=== PATIENT | female | born 1990 | race Caucasian/White ===

== ENCOUNTER → 2018-01-11 | Outpatient (CLI) | payer OTHER ==
--- NOTE | 2018-01-11 13:06 | US ---
EXAMINATION TYPE: US thyroid st tissue head/neck DATE OF EXAM: 01/11/2018 COMPARISON: NONE CLINICAL HISTORY: E04.9 ENLARGED THYROID. GLAND SIZE: Right Lobe: 4.9 x 2.1 x 2.1 cm Overall Parenchyma: heterogenous Left Lobe: 4.7 x 1.9 x 2.0 cm Overall Parenchyma: heterogeneous Isthmus Thickness: 0.5 cm NODULES RIGHT: # of nodules measured on right: 0 LEFT: # of nodules measured on left: 0 ISTHMUS: # of nodules measured in the isthmus: 0 Bilateral neck scanned, no evidence of lymphadenopathy. Left lobe appears slightly larger than right Diffusely heterogenous gland bilaterally. No definitive nodule identified. IMPRESSION: Heterogenous thyroid. No discrete suspicious nodules are evident.
== END | disposition home or self-care (01) ==
LOC: RADUSWWP 12:11
PROVIDERS: ATTEND Family Medicine
DX: E07.9 Disorder of thyroid, unspecified (principal)
CPT/HCPCS: 76536

== ENCOUNTER 2019-10-26 16:50 | Emergency (ER) | payer BC ==
[2019-10-26 16:59] VITALS: BP 132/86; PULSE 58; RESP 18; TEMP 98.1
--- NOTE | 2019-10-26 17:08 | ED ---
Wound/Laceration HPI - General Chief Complaint: Wound/Laceration Stated Complaint: Left thumb Lac Time Seen by Provider: 10/26/19 17:01 Source: patient Mode of arrival: ambulatory Limitations: no limitations - History of Present Illness Initial Comments: Patient is a 29-year-old female presenting to the emergency department with the chief complaint a laceration. Patient states she was cutting lettuce with a knife when she lacerated the distal in the left thumb. Patient reports her tetanus is up-to-date. States there was initial bleeding which has since resolved. Denies any numbness or tingling. Reports only mild pain at the injured site. States this occurred about one hour prior to arrival. - Related Data Allergies Allergy/AdvReac Type Severity Reaction Status Date / Time sulfamethoxazole Allergy Unknown Verified 10/26/19 16:59 [From Bactrim] Childhood trimethoprim [From Bactrim] Allergy Unknown Verified 10/26/19 16:59 Childhood Review of Systems ROS Statement: Those systems with pertinent positive or pertinent negative responses have been documented in the HPI. ROS Other: All systems not noted in ROS Statement are negative. Past Medical History Past Medical History: No Reported History History of Any Multi-Drug Resistant Organisms: None Reported Past Surgical History: Section Past Psychological History: Anxiety Smoking Status: Never smoker Past Alcohol Use History: None Reported Past Drug Use History: None Reported General Exam Limitations: no limitations General appearance: alert, in no apparent distress Head exam: Present: atraumatic, normocephalic, normal inspection Eye exam: Present: normal appearance, PERRL, EOMI Pupils: Present: normal accommodation ENT exam: Present: normal exam, normal oropharynx, mucous membranes moist Neck exam: Present: normal inspection, full ROM Respiratory exam: Present: normal lung sounds bilaterally Cardiovascular Exam: Present: regular rate, normal rhythm, normal heart sounds Extremities exam: Present: full ROM, normal capillary refill, other (+2 ulnar and radial pulses bilaterally.). Absent: normal inspection (Small laceration measuring approximately 1 cm that is very superficial with a flap formation at the distal end of the left thumb.), tenderness Back exam: Present: normal inspection, full ROM Neurological exam: Present: alert, oriented X3 Psychiatric exam: Present: normal affect, normal mood Skin exam: Present: warm, dry, intact, normal color Course Vital Signs 10/26/19 16:56 Temperature 98.1 F Pulse Rate 58 L Respiratory 18 Rate Blood Pressure 132/86 O2 Sat by Pulse 100 Oximetry Procedures - Laceration Laceration #1 Consent Obtained: verbal consent Indication: laceration Site: hand Size (cm): 1 Description: flap, clean Depth: simple, single layer Sedation/Analgesia: none Pre-repair: irrigated extensively, deep structures intact Type of Sutures: nylon Size of Sutures: 4-0 Number of Sutures: 2 Technique: simple, interrupted Complications: pain Patient Tolerated Procedure: well, no complications Medical Decision Making - Medical Decision Making Patient 29-year-old female presenting to emergency Department with a chief complaint of laceration. Laceration site with flap formation noted on the left thumb. Her tetanus is up-to-date. Laceration site was repaired with 2 sutures. Patient tolerated the procedure well. Advised to return to emergency Department in 7-10 days for suture removal. Wound care instructions given. Case discussed with physician. Disposition Clinical Impression: Laceration Disposition: HOME SELF-CARE Condition: Stable Instructions (If sedation given, give patient instructions): Care For Your Stitches (DC), Laceration (DC) Additional Instructions: Return to emergency department for suture removal in 10 days. Is patient prescribed a controlled substance at d/c from ED?: No Referrals: Fareed Courtney MD [Primary Care Provider] - 1-2 days Time of Disposition: 17:58
[2019-10-26] MEDS ORDERED: LIDOCAINE 1% INJ 10MG/ML (20 ML MDV) SQ ONE (17:11)
== END 2019-10-26 18:38 | disposition home or self-care (01) ==
LOC: EC 16:50
DX: S61.012A Laceration without foreign body of left thumb without damage to nail, initial encounter (principal); Z88.2 Allergy status to sulfonamides; W26.0XXA Contact with knife, initial encounter; Y93.G1 Activity, food preparation and clean up
CPT/HCPCS: 12001; 99282